=== PATIENT | female | born 1940 | race African-American/Black ===

== ENCOUNTER 2018-05-27 22:24 | Inpatient (IN) | payer MEDICARE, OTHER ==
[~2018-05-27] VITALS: Ht 149.9 cm; Wt 50.3 kg
[2018-05-27] MEDS ORDERED: METHYLPREDNISOLONE SOD SUCC 125 MG/2 ML VIAL IV STA (22:31)
[2018-05-27] MEDS ORDERED: SODIUM CHLORIDE 0.9% 1,000 ML IV ONE (22:31)
[2018-05-27] MEDS ORDERED: ONDANSETRON HCL 4MG/2ML INJ IV STA (22:31)
[2018-05-27] MEDS ORDERED: IPRATROPIUM BROMIDE (0.02%) 0.5MG/2.5ML NEB HHN STA (22:31)
[2018-05-27] MEDS ORDERED: ALBUTEROL (0.083%) 2.5MG/3ML NEB HHN SCH (23:00)
[2018-05-27 23:53] LABS: BASOPHILS % 0.2 % (0.0-2.0); EOSINOPHILS % 0.3 % (0.0-5.0); HEMATOCRIT. 38.6 % (36.0-48.0); HEMOGLOBIN. 12.5 g/dL (12.0-16.0); LYMPHOCYTES % 17.4 % (20.0-50.0); MEAN PLATELET VOLUME 7.7 fl (7.4-10.4); MONOCYTES % 7.4 % (2.0-8.0); NEUTROPHILS % 74.7 % (40.0-76.0); PLATELET 222 x1000/uL (130-400); RED CELL DISTRIBUTION WIDTH 15.6 % (11.6-14.6)
[2018-05-27 23:59] LABS: CHLORIDE 107 mEq/L (98-107)
[2018-05-28] VITALS (7 sets, daily range): BP systolic 93–126; BP diastolic 26–71
[2018-05-28 00:30] LABS: BG BASE EXCESS 1.2 mmol/L (-2.0-2.0); BG BILEVEL POS AIRWAY PRESSURE 15/5; BG CARBOXYHEMOGLOBIN 0.3 % (0.5-1.5); BG DEOXYHEMOGLOBIN 0.9 % (0.0-5.0); BG FRACTION INSPIRED OXYGEN 50; BG HCO3 ACT 26.6 mmol/L (22.0-26.0); BG METHEMOGLOBIN 0.5 % (0.0-1.5); BG OXYGEN SATURATION 99.1 % (92.0-98.5); BG OXYHEMOGLOBIN 98.3 % (94.0-97.0); BG PCO2 44.9 mmHg (35.0-45.0); BG PO2 181.1 mmHg (75.0-100.0); BG SAMPLE SITE RIGHT RADIAL; BG TOTAL HEMOGLOBIN 13.1 g/dL (12.0-18.0); BG VENT MODE MASK - BIPAP
[2018-05-28] MEDS ORDERED: METHYLPREDNISOLONE SOD SUCC 40 MG/ML VIAL IV NR (09:42)
[2018-05-28] MEDS: IPRATROPIUM/ALBUTEROL 0.5-3(2.5)MG/3ML NEB HHN PRN ×2 (11:10→11:30)
[2018-05-28] MEDS ORDERED: GUAIFENESIN 200MG/10ML SUGAR FREE UDC PO PRN (11:45)
[2018-05-28] MEDS ORDERED: NA PHOS,M-B/NA PHOS,DI-BA ENEMA 118ML PR PRN (11:45)
[2018-05-28] MEDS ORDERED: ACETAMINOPHEN 650MG SUPP PR PRN (11:45)
[2018-05-28] MEDS ORDERED: ONDANSETRON HCL 4MG/2ML INJ IV PRN (11:45)
[2018-05-28] MEDS ORDERED: DOCUSATE SODIUM 100MG CAPSULE PO PRN (11:45)
[2018-05-28] MEDS ORDERED: IPRATROPIUM/ALBUTEROL 0.5-3(2.5)MG/3ML NEB INH PRN (11:45)
[2018-05-28] MEDS ORDERED: ACETAMINOPHEN 325MG TABLET PO PRN (11:45)
[2018-05-28] MEDS ORDERED: CLONIDINE 0.1MG TABLET PO PRN (11:45)
[2018-05-28] MEDS ORDERED: DEXTROSE 50% WATER 50ML SYRINGE IV PRN (11:45)
[2018-05-28] MEDS ORDERED: DIPHENHYDRAMINE 50MG/ML VIAL IV PRN (11:45)
[2018-05-28] MEDS ORDERED: MAGNESIUM/ALUMINUM HYDROXIDE/SIMETHICONE 30ML UDC PO PRN (11:45)
[2018-05-28] MEDS: INSULIN LISPRO 100 UNITS/ML SUBCUT SCH ×3 (12:20→21:00)
[2018-05-28] MEDS: BLOOD SUGAR DIAGNOSTIC STRIP TEST SCH ×3 (12:33→21:23)
[2018-05-28] MEDS: ENOXAPARIN 40MG/0.4ML SYR SUBCUT SCH (12:33)
[2018-05-28] MEDS: IPRATROPIUM/ALBUTEROL 0.5-3(2.5)MG/3ML NEB INH SCH ×3 (12:43→22:00)
[2018-05-28 12:52] LABS: HEMATOCRIT 38.1 % (36.0-48.0); HEMOGLOBIN 12.3 g/dL (12.0-16.0); MEAN CORPUSCULAR HEMOGLOBIN 32.3 pg (28.0-32.0); PLATELET 200 x1000/uL (130-400); RED BLOOD CELL COUNT 3.81 mill/uL (4.2-5.4); RED CELL DISTRIBUTION WIDTH 15.7 % (11.6-14.6)
[2018-05-28 12:54] LABS: INR 1.1; PROTHROMBIN TIME 10.9 sec (9.1-11.1)
[2018-05-28 12:58] LABS: CHLORIDE 109 mEq/L (98-107)
[2018-05-28] MEDS ORDERED: LEVOFLOXACIN 500MG PREMIX 100 ML IV NR (13:30)
[2018-05-28] MEDS: NITROGLYCERIN OINT 1GM/INCH UDPKT TD SCH ×2 (17:00→21:43)
[2018-05-28] MEDS: METHYLPREDNISOLONE SOD SUCC 40 MG/ML VIAL IV SCH (18:06)
[2018-05-28] MEDS: FAMOTIDINE 20MG/2ML VIAL IV SCH (21:42)
[2018-05-28 22:16] LABS: CREATINE KINASE MB FRACTION 5.1 ng/mL (0.5-3.6)
[2018-05-28 23:42] LABS: CLARITY URINE CLEAR (CLEAR); COLOR URINE YELLOW (YELLOW); KETONES URINE TRACE (NEGATIVE); LEUKOCYTE ESTERASE URINE NEGATIVE (NEGATIVE); NITRITE URINE NEGATIVE (NEGATIVE); OCCULT BLOOD URINE 1+ (NEGATIVE); PROTEIN URINE NEGATIVE (NEGATIVE); SPECIFIC GRAVITY URINE 1.019 (1.005-1.030); UROBILINOGEN URINE 0.2 E.U./dL (0.2-1.0)
[2018-05-29] VITALS (17 sets, daily range): BP systolic 90–115; BP diastolic 45–77
[2018-05-29 00:11] LABS: *AMPHETAMINES SCREEN URINE NEGATIVE (NEGATIVE); *BARBITURATES SCREEN URINE NEGATIVE (NEGATIVE)
[2018-05-29 00:12] LABS: *BENZODIAZEPINES SCREEN URINE NEGATIVE (NEGATIVE); *COCAINE SCREEN URINE NEGATIVE (NEGATIVE); METHADONE URINE SCREEN NEGATIVE (NEGATIVE); OPIATES URINE SCREEN PRESUMTIVE POSITIVE (NEGATIVE)
[2018-05-29 00:13] LABS: CANNABINOID URINE SCREEN NEGATIVE (NEGATIVE); PHENCYCLIDINE URINE SCREEN NEGATIVE (NEGATIVE)
[2018-05-29] MEDS: IPRATROPIUM/ALBUTEROL 0.5-3(2.5)MG/3ML NEB INH SCH ×6 (01:09→20:54)
[2018-05-29] MEDS: METHYLPREDNISOLONE SOD SUCC 40 MG/ML VIAL IV SCH ×3 (03:09→18:55)
[2018-05-29] MEDS: LORAZEPAM 0.5MG TABLET PO PRN ×2 (05:41→21:45)
[2018-05-29] MEDS: NITROGLYCERIN OINT 1GM/INCH UDPKT TD SCH ×3 (06:12→21:45)
[2018-05-29 06:29] LABS: BASOPHILS % 0.1 % (0.0-2.0); HEMATOCRIT. 38.7 % (36.0-48.0); HEMOGLOBIN. 12.5 g/dL (12.0-16.0); MEAN CORPUSCULAR HEMOGLOBIN 31.8 pg (28.0-32.0); MEAN CORPUSCULAR VOLUME 98.6 fL (81.0-99.0); MEAN PLATELET VOLUME 7.8 fl (7.4-10.4); MONOCYTES % 5.4 % (2.0-8.0); NEUTROPHILS % 84.5 % (40.0-76.0); PLATELET 233 x1000/uL (130-400); RED BLOOD CELL COUNT 3.92 mill/uL (4.2-5.4); RED CELL DISTRIBUTION WIDTH 15.7 % (11.6-14.6)
[2018-05-29] MEDS: BLOOD SUGAR DIAGNOSTIC STRIP TEST SCH ×4 (06:37→21:44)
[2018-05-29 07:02] LABS: CHLORIDE 106 mEq/L (98-107)
[2018-05-29 07:27] LABS: HDL CHOLESTEROL 80 mg/dL (40-59); T4 FREE 0.99 ng/dL (0.76-1.46)
[2018-05-29 07:29] LABS: LDL CHOLESTEROL 148 mg/dL (5-100)
[2018-05-29 07:46] LABS: BG BASE EXCESS 2.9 mmol/L (-2.0-2.0); BG BILEVEL POS AIRWAY PRESSURE 15/5; BG CARBOXYHEMOGLOBIN 0.3 % (0.5-1.5); BG DEOXYHEMOGLOBIN 1.2 % (0.0-5.0); BG HCO3 ACT 28.7 mmol/L (22.0-26.0); BG METHEMOGLOBIN 0.4 % (0.0-1.5); BG OXYGEN SATURATION 98.8 % (92.0-98.5); BG OXYHEMOGLOBIN 98.1 % (94.0-97.0); BG PCO2 48.9 mmHg (35.0-45.0); BG PH 7.387 (7.350-7.450); BG PO2 145.3 mmHg (75.0-100.0); BG SAMPLE SITE RIGHT RADIAL; BG TOTAL HEMOGLOBIN 12.9 g/dL (12.0-18.0); BG VENT MODE MASK - BIPAP; BG VENT RATE 14 set
[2018-05-29] MEDS: FAMOTIDINE 20MG/2ML VIAL IV SCH (07:51)
[2018-05-29] MEDS: ASPIRIN 81MG EC TABLET PO SCH (07:52)
[2018-05-29] MEDS: INSULIN LISPRO 100 UNITS/ML SUBCUT SCH ×4 (07:53→21:00)
[2018-05-29] MEDS: LEVOFLOXACIN 250MG PREMIX 50 ML IV SCH (13:11)
[2018-05-29] MEDS: ENOXAPARIN 40MG/0.4ML SYR SUBCUT SCH (13:11)
[2018-05-29] MEDS: ATORVASTATIN CALCIUM 10MG TABLET PO SCH (21:45)
[2018-05-30] VITALS (13 sets, daily range): BP systolic 96–134; BP diastolic 47–86
[2018-05-30] MEDS: IPRATROPIUM/ALBUTEROL 0.5-3(2.5)MG/3ML NEB INH SCH ×6 (00:51→20:35)
[2018-05-30] MEDS: METHYLPREDNISOLONE SOD SUCC 40 MG/ML VIAL IV SCH ×3 (01:17→18:23)
[2018-05-30] MEDS: LORAZEPAM 0.5MG TABLET PO PRN (04:30)
[2018-05-30 06:08] LABS: HEMATOCRIT. 36.4 % (36.0-48.0); HEMOGLOBIN. 11.9 g/dL (12.0-16.0); MEAN CORPUSCULAR HEMOGLOBIN 32.1 pg (28.0-32.0); MEAN PLATELET VOLUME 7.9 fl (7.4-10.4); PLATELET 237 x1000/uL (130-400); RED BLOOD CELL COUNT 3.72 mill/uL (4.2-5.4); RED CELL DISTRIBUTION WIDTH 15.5 % (11.6-14.6)
[2018-05-30] MEDS: BLOOD SUGAR DIAGNOSTIC STRIP TEST SCH ×4 (06:41→21:05)
[2018-05-30] MEDS: NITROGLYCERIN OINT 1GM/INCH UDPKT TD SCH ×3 (06:45→21:14)
[2018-05-30 07:45] LABS: CHLORIDE 104 mEq/L (98-107)
[2018-05-30] MEDS: FAMOTIDINE 20MG/2ML VIAL IV SCH (08:27)
[2018-05-30] MEDS: ASPIRIN 81MG EC TABLET PO SCH (08:27)
[2018-05-30] MEDS: INSULIN LISPRO 100 UNITS/ML SUBCUT SCH ×4 (08:28→21:14)
[2018-05-30] MEDS: HYDROCODONE/ACETAMINOPHEN 5/325MG TABLET PO PRN ×2 (10:53→16:20)
[2018-05-30 10:58] LABS: NUCLEATED RED BLOOD CELLS 1 /100 WBC
[2018-05-30 10:59] LABS: PLATELET ESTIMATE NORMAL
[2018-05-30] MEDS: LEVOFLOXACIN 250MG PREMIX 50 ML IV SCH (12:34)
[2018-05-30] MEDS: ENOXAPARIN 40MG/0.4ML SYR SUBCUT SCH (12:34)
[2018-05-30] MEDS ORDERED: LORAZEPAM 0.5MG TABLET PO PRN (15:45)
[2018-05-30] MEDS: ATORVASTATIN CALCIUM 10MG TABLET PO SCH (21:14)
[2018-05-31] VITALS (10 sets, daily range): BP systolic 101–114; BP diastolic 39–76
[2018-05-31] MEDS: IPRATROPIUM/ALBUTEROL 0.5-3(2.5)MG/3ML NEB INH SCH ×3 (00:18→15:06)
[2018-05-31] MEDS: HYDROCODONE/ACETAMINOPHEN 5/325MG TABLET PO PRN (04:35)
[2018-05-31] MEDS: NITROGLYCERIN OINT 1GM/INCH UDPKT TD SCH ×2 (06:00→13:19)
[2018-05-31 06:30] LABS: BASOPHILS % 0.1 % (0.0-2.0); HEMATOCRIT. 35.4 % (36.0-48.0); HEMOGLOBIN. 11.4 g/dL (12.0-16.0); LYMPHOCYTES % 7.4 % (20.0-50.0); MEAN CORPUSCULAR HEMOGLOBIN 31.6 pg (28.0-32.0); MEAN CORPUSCULAR VOLUME 97.8 fL (81.0-99.0); NEUTROPHILS % 86.5 % (40.0-76.0); PLATELET 253 x1000/uL (130-400); RED BLOOD CELL COUNT 3.63 mill/uL (4.2-5.4); RED CELL DISTRIBUTION WIDTH 15.2 % (11.6-14.6)
[2018-05-31 06:35] LABS: CHLORIDE 102 mEq/L (98-107)
[2018-05-31] MEDS: METHYLPREDNISOLONE SOD SUCC 40 MG/ML VIAL IV SCH ×2 (06:39→18:16)
[2018-05-31] MEDS: BLOOD SUGAR DIAGNOSTIC STRIP TEST SCH ×3 (06:40→16:50)
[2018-05-31] MEDS: INSULIN LISPRO 100 UNITS/ML SUBCUT SCH ×3 (07:20→17:20)
[2018-05-31] MEDS: FAMOTIDINE 20MG/2ML VIAL IV SCH (09:10)
[2018-05-31] MEDS: ASPIRIN 81MG EC TABLET PO SCH (09:11)
[2018-05-31] MEDS: LEVOFLOXACIN 250MG PREMIX 50 ML IV SCH (12:40)
[2018-05-31] MEDS: ENOXAPARIN 40MG/0.4ML SYR SUBCUT SCH (12:41)
== END 2018-05-31 19:57 | disposition home health service (06) | DRG 280 ==
LOC: ER 22:24 → 3WST 05-28 01:00 → EDBEDREQDT 05-28 01:07 → EDBEDREQSVC 05-28 01:07 → EDBEDREQ 05-28 01:07 → EDBEDREQTM 05-28 01:07 → ENRESERV 05-28 10:57 → 3WST 05-28 11:44
PROVIDERS: ADMIT Internal Medicine; ATTEND Internal Medicine
PROC: 5A09357 Assistance with Respiratory Ventilation, Less than 24 Consecutive Hours, Continuous Positive Airway Pressure (ICD-10-PCS; principal; 2018-05-27)
PROC: 5A09357 Assistance with Respiratory Ventilation, Less than 24 Consecutive Hours, Continuous Positive Airway Pressure (ICD-10-PCS; 2018-05-28)
DX: I21.4 Non-ST elevation (NSTEMI) myocardial infarction (principal); J96.01 Acute respiratory failure with hypoxia; I50.43 Acute on chronic combined systolic (congestive) and diastolic (congestive) heart failure; J18.9 Pneumonia, unspecified organism; J44.1 Chronic obstructive pulmonary disease with (acute) exacerbation; E78.5 Hyperlipidemia, unspecified; E11.65 Type 2 diabetes mellitus with hyperglycemia; F17.210 Nicotine dependence, cigarettes, uncomplicated; J06.9 Acute upper respiratory infection, unspecified; I11.0 Hypertensive heart disease with heart failure; I27.20 Pulmonary hypertension, unspecified; Z95.0 Presence of cardiac pacemaker; Z99.81 Dependence on supplemental oxygen
CPT/HCPCS: 36415; 36600; 71045; 80048; 80061; 80305; 82375; 82550; 82553; 82805; 82962; 83036; 83605; 83880; 84439; 84443; 84484; 85027; 93005; 93306; 93970; 94640; 94660; 96374; 96375; 97162; 99291; J1650; J1815; J1956; J2405; J2920; J2930; J3490; J7030; J7611; J7620

== ENCOUNTER 2018-11-01 17:49 | Emergency (ER) | payer MEDICARE, OTHER ==
[~2018-11-01] VITALS: Ht 157.5 cm; Wt 60.0 kg
[2018-11-01 19:06] LABS: BASOPHILS % 0.6 % (0.0-2.0); EOSINOPHILS % 0.2 % (0.0-5.0); HEMATOCRIT. 37.9 % (36.0-48.0); HEMOGLOBIN. 12.6 g/dL (12.0-16.0); LYMPHOCYTES % 19.4 % (20.0-50.0); MEAN CORPUSCULAR HEMOGLOBIN 31.6 pg (28.0-32.0); MEAN CORPUSCULAR VOLUME 95.5 fL (81.0-99.0); MEAN PLATELET VOLUME 7.6 fl (7.4-10.4); MONOCYTES % 8.5 % (2.0-8.0); NEUTROPHILS % 71.3 % (40.0-76.0); PLATELET 237 x1000/uL (130-400); RED BLOOD CELL COUNT 3.98 mill/uL (4.2-5.4); RED CELL DISTRIBUTION WIDTH 14.6 % (11.6-14.6)
[2018-11-01 19:11] LABS: CHLORIDE 104 mEq/L (98-107)
[2018-11-01] MEDS ORDERED: KETOROLAC 15MG/ML VIAL IV NR (19:30)
[2018-11-01] MEDS ORDERED: ASPIRIN 325MG TABLET PO NR (19:30)
[2018-11-01 23:49] VITALS: BP 138/115
== END 2018-11-02 ==
LOC: ER 17:49 → CANBEDREQ 11-02 01:06
DX: R07.89 Other chest pain (principal); R06.02 Shortness of breath; R10.13 Epigastric pain; J44.9 Chronic obstructive pulmonary disease, unspecified; Z95.0 Presence of cardiac pacemaker
CPT/HCPCS: 36415; 71045; 80053; 83880; 84484; 85025; 93005; 96374; 99284; J1885

== ENCOUNTER 2019-05-02 03:37 | Inpatient (IN) | payer OTHER ==
[~2019-05-02] VITALS: Ht 149.9 cm; Wt 54.0 kg
[2019-05-02] MEDS ORDERED: MORPHINE SULFATE 4 MG/ML CPJ (NOT FOR IM USE) IV STA (04:13)
[2019-05-02] MEDS ORDERED: ONDANSETRON HCL 4MG/2ML INJ IV STA (04:13)
[2019-05-02] MEDS ORDERED: METRONIDAZOLE 500 MG PREMIX 100 ML IV ONE (04:15)
[2019-05-02] MEDS ORDERED: SODIUM CHLORIDE 0.9% 1000ML BAG (SEPSIS BOLUS) IV ONE (04:15)
[2019-05-02] MEDS ORDERED: CEFTRIAXONE 1 G PREMIX 50 ML IV ONE (04:15)
[2019-05-02 04:52] LABS: CHLORIDE 107 mEq/L (98-107)
[2019-05-02 04:55] LABS: BASOPHILS % 0.3 % (0.0-2.0); EOSINOPHILS % 0.3 % (0.0-5.0); HEMATOCRIT. 41.1 % (36.0-48.0); HEMOGLOBIN. 13.2 g/dL (12.0-16.0); LYMPHOCYTES % 12.4 % (20.0-50.0); MEAN CORPUSCULAR HEMOGLOBIN 30.8 pg (28.0-32.0); MEAN CORPUSCULAR VOLUME 95.8 fL (81.0-99.0); MEAN PLATELET VOLUME 8.2 fl (7.4-10.4); MONOCYTES % 2.9 % (2.0-8.0); NEUTROPHILS % 84.1 % (40.0-76.0); PLATELET 162 x1000/uL (130-400); RED BLOOD CELL COUNT 4.29 mill/uL (4.2-5.4)
[2019-05-02] MEDS ORDERED: LORAZEPAM 1MG TABLET PO ONE (06:15)
[2019-05-02] MEDS ORDERED: ALBUTEROL (0.083%) 2.5MG/3ML NEB HHN STA (06:21)
[2019-05-02] MEDS ORDERED: IPRATROPIUM BROMIDE (0.02%) 0.5MG/2.5ML NEB HHN STA (06:21)
[2019-05-02 07:54] LABS: CLARITY URINE CLEAR (CLEAR); COLOR URINE YELLOW (YELLOW); KETONES URINE NEGATIVE (NEGATIVE); LEUKOCYTE ESTERASE URINE NEGATIVE (NEGATIVE); NITRITE URINE NEGATIVE (NEGATIVE); OCCULT BLOOD URINE TRACE (NEGATIVE); PROTEIN URINE NEGATIVE (NEGATIVE); SPECIFIC GRAVITY URINE 1.008 (1.005-1.030); UROBILINOGEN URINE 0.2 E.U./dL (0.2-1.0)
[2019-05-02] MEDS: IPRATROPIUM/ALBUTEROL 0.5-3(2.5)MG/3ML NEB HHN SCH ×3 (08:36→15:55)
[2019-05-02] MEDS ORDERED: MORPHINE SULFATE 2 MG/ML CPJ (NOT FOR IM USE) IV PRN (10:45)
[2019-05-02] MEDS ORDERED: IPRATROPIUM/ALBUTEROL 0.5-3(2.5)MG/3ML NEB NEB PRN (10:45)
[2019-05-02] MEDS ORDERED: DEXT 5%/0.45% NACL KCL 10MEQ/L 1,000 ML IV SCH ×2 (10:45→11:30)
[2019-05-02] MEDS ORDERED: ONDANSETRON HCL 4MG/2ML INJ IV PRN (10:45)
[2019-05-02] MEDS ORDERED: DIPHENHYDRAMINE 50MG/ML VIAL IV PRN (10:45)
[2019-05-02] MEDS ORDERED: POTASSIUM CHLORIDE INJ 40 MEQ in DEXT 5% WATER 250 ML IV SCH (11:00)
[2019-05-02] MEDS ORDERED: PIPERACILLIN/TAZOBACTAM 2.25 G in DEXTROSE 5% WATER 50 ML IV SCH ×2 (11:00→18:00)
[2019-05-02] MEDS: FAMOTIDINE 20MG/2ML VIAL IV SCH (11:31)
[2019-05-02 11:57] LABS: *BARBITURATES SCREEN URINE NEGATIVE (NEGATIVE)
[2019-05-02 11:58] LABS: CANNABINOID URINE SCREEN NEGATIVE (NEGATIVE); METHADONE URINE SCREEN NEGATIVE (NEGATIVE); OPIATES URINE SCREEN PRESUMTIVE POSITIVE (NEGATIVE); PHENCYCLIDINE URINE SCREEN NEGATIVE (NEGATIVE)
[2019-05-02 11:59] LABS: *AMPHETAMINES SCREEN URINE NEGATIVE (NEGATIVE); *COCAINE SCREEN URINE NEGATIVE (NEGATIVE)
[2019-05-02 12:01] LABS: *BENZODIAZEPINES SCREEN URINE NEGATIVE (NEGATIVE)
[2019-05-02] MEDS: METHYLPREDNISOLONE SOD SUCC 40 MG/ML VIAL IV SCH (13:15)
[2019-05-02] MEDS: LORAZEPAM 2MG/ML CPJ IV PRN (15:03)
[2019-05-02] MEDS: DEXT 5%/0.45% NACL 1000ML 1,000 ML IV SCH (16:36)
[2019-05-02] MEDS ORDERED: IPRATROPIUM/ALBUTEROL 0.5-3(2.5)MG/3ML NEB HHN SCH (18:00)
[2019-05-02 23:00] VITALS: BP 102/59
[2019-05-02 23:37] VITALS: BP 102/59
[2019-05-03] VITALS (9 sets, daily range): BP systolic 94–136; BP diastolic 51–111
[2019-05-03] MEDS: PIPERACILLIN/TAZOBACTAM 3.375 G in DEXT 5% WATER 100 ML IV SCH ×4 (01:47→18:00)
[2019-05-03] MEDS: DEXT 5%/0.45% NACL 1000ML 1,000 ML IV SCH ×3 (01:47→21:15)
[2019-05-03] MEDS: IPRATROPIUM/ALBUTEROL 0.5-3(2.5)MG/3ML NEB HHN SCH ×4 (02:32→22:07)
[2019-05-03 07:19] LABS: HEMATOCRIT. 33.3 % (36.0-48.0); MEAN CORPUSCULAR HEMOGLOBIN 31.8 pg (28.0-32.0); MEAN CORPUSCULAR VOLUME 96.4 fL (81.0-99.0); MEAN PLATELET VOLUME 8.2 fl (7.4-10.4); PLATELET 159 x1000/uL (130-400); RED BLOOD CELL COUNT 3.45 mill/uL (4.2-5.4)
[2019-05-03 07:20] LABS: CHLORIDE 110 mEq/L (98-107)
[2019-05-03 07:33] LABS: T4 FREE 1.11 ng/dL (0.76-1.46)
[2019-05-03 07:34] LABS: HDL CHOLESTEROL 71 mg/dL (40-59)
[2019-05-03 07:35] LABS: LDL CHOLESTEROL 51 mg/dL (5-100)
[2019-05-03] MEDS: FAMOTIDINE 20MG/2ML VIAL IV SCH (08:40)
[2019-05-03] MEDS: METHYLPREDNISOLONE SOD SUCC 40 MG/ML VIAL IV SCH (08:40)
[2019-05-03 14:08] LABS: PLATELET ESTIMATE NORMAL
[2019-05-03 18:32] LABS: PROTHROMBIN TIME 11.2 sec (9.6-11.0)
[2019-05-03] MEDS: LORAZEPAM 2MG/ML CPJ IV PRN (22:56)
[2019-05-04] MEDS: PIPERACILLIN/TAZOBACTAM 3.375 G in DEXT 5% WATER 100 ML IV SCH ×4 (00:27→17:19)
[2019-05-04 02:00] VITALS: BP 125/99
[2019-05-04] MEDS: IPRATROPIUM/ALBUTEROL 0.5-3(2.5)MG/3ML NEB HHN SCH ×4 (03:17→21:01)
[2019-05-04 04:00] VITALS: BP 122/73
[2019-05-04] MEDS: DEXT 5%/0.45% NACL 1000ML 1,000 ML IV SCH ×2 (06:54→14:52)
[2019-05-04 07:57] LABS: HEMATOCRIT 33.6 % (36.0-48.0); HEMOGLOBIN 11.2 g/dL (12.0-16.0); MEAN CORPUSCULAR VOLUME 95.7 fL (81.0-99.0); RED BLOOD CELL COUNT 3.51 mill/uL (4.2-5.4)
[2019-05-04] MEDS: FAMOTIDINE 20MG/2ML VIAL IV SCH (08:37)
[2019-05-04] MEDS: METHYLPREDNISOLONE SOD SUCC 40 MG/ML VIAL IV SCH (08:37)
[2019-05-04 09:12] LABS: CHLORIDE 109 mEq/L (98-107)
[2019-05-04 10:37] LABS: PLATELET 186 x1000/uL (130-400)
[2019-05-04 12:00] VITALS: BP 132/83
[2019-05-04] MEDS: LORAZEPAM 2MG/ML CPJ IV PRN (12:26)
[2019-05-04 14:00] VITALS: BP 112/85
[2019-05-04] MEDS ORDERED: POTASSIUM CHLORIDE 20MEQ/PACKET PO NR (14:30)
[2019-05-04 16:00] VITALS: BP 115/69
[2019-05-04] MEDS: DOCUSATE SODIUM 100MG CAPSULE PO SCH (17:19)
[2019-05-04 19:30] LABS: PHOSPHORUS 1.8 mg/dL (2.5-4.9)
[2019-05-04 20:00] VITALS: BP 95/53
[2019-05-05] VITALS (7 sets, daily range): BP systolic 88–145; BP diastolic 42–76
[2019-05-05] MEDS: PIPERACILLIN/TAZOBACTAM 3.375 G in DEXT 5% WATER 100 ML IV SCH ×3 (02:20→13:01)
[2019-05-05] MEDS: DEXT 5%/0.45% NACL 1000ML 1,000 ML IV SCH (02:22)
[2019-05-05] MEDS: IPRATROPIUM/ALBUTEROL 0.5-3(2.5)MG/3ML NEB HHN SCH ×3 (03:17→16:13)
[2019-05-05 07:27] LABS: HEMATOCRIT 31.5 % (36.0-48.0); HEMOGLOBIN 10.3 g/dL (12.0-16.0); MEAN CORPUSCULAR HEMOGLOBIN 31.1 pg (28.0-32.0); MEAN CORPUSCULAR VOLUME 95.2 fL (81.0-99.0); PLATELET 179 x1000/uL (130-400); RED BLOOD CELL COUNT 3.31 mill/uL (4.2-5.4)
[2019-05-05 07:58] LABS: CHLORIDE 110 mEq/L (98-107)
[2019-05-05 08:04] LABS: PHOSPHORUS 2.4 mg/dL (2.5-4.9)
[2019-05-05] MEDS: DOCUSATE SODIUM 100MG CAPSULE PO SCH ×2 (08:40→16:34)
[2019-05-05] MEDS: FAMOTIDINE 20MG/2ML VIAL IV SCH (08:40)
[2019-05-05] MEDS: METHYLPREDNISOLONE SOD SUCC 40 MG/ML VIAL IV SCH (08:40)
[2019-05-05] MEDS ORDERED: CRES10 PO (12:12)
[2019-05-05] MEDS ORDERED: PRED-276 PO (12:12)
[2019-05-05] MEDS ORDERED: DIPH50CA38 PO (12:12)
[2019-05-05] MEDS ORDERED: FLUT1AER INH (12:12)
[2019-05-05] MEDS ORDERED: MONT10TA21 PO (12:12)
[2019-05-05] MEDS ORDERED: LORA2DIS5 SQ (12:12)
[2019-05-05] MEDS ORDERED: TLXL5 PO (12:12)
[2019-05-06] MEDS ORDERED: LORA-249 PO (22:44)
== END 2019-05-05 18:22 | disposition home or self-care (01) | DRG 244 ==
LOC: ER 03:37 → 5EST 05:07 → EDBEDREQTM 05:10 → EDBEDREQ 05:10 → ENRESERV 21:41 → 5EST 05-04 10:20
PROVIDERS: ADMIT Internal Medicine; ATTEND Internal Medicine
DX: K57.80 Diverticulitis of intestine, part unspecified, with perforation and abscess without bleeding (principal); I50.43 Acute on chronic combined systolic (congestive) and diastolic (congestive) heart failure; I27.20 Pulmonary hypertension, unspecified; J44.1 Chronic obstructive pulmonary disease with (acute) exacerbation; K76.89 Other specified diseases of liver; E87.6 Hypokalemia; I11.0 Hypertensive heart disease with heart failure; Z95.0 Presence of cardiac pacemaker
CPT/HCPCS: 36415; 71045; 74176; 80048; 80051; 80053; 80061; 80305; 81003; 83605; 83735; 84100; 84145; 84439; 84443; 84484; 85025; 85027; 93005; 93306; 93970; 94640; 96365; 99291; J0696; J2060; J2270; J2405; J2543; J2920; J3480; J3490; J7030; J7060

== ENCOUNTER 2019-05-06 10:28 | Inpatient (IN) | payer OTHER ==
[~2019-05-06] VITALS: Ht 149.9 cm; Wt 47.6 kg
[~2019-05-06 10:28] MED LIST: CRES10 PO; DIPH50CA38 PO; FLUT1AER INH; LORA2DIS5 SQ; MONT10TA21 PO; PRED-276 PO; TLXL5 PO
[2019-05-06 11:32] LABS: HEMATOCRIT. 38.9 % (36.0-48.0); HEMOGLOBIN. 12.9 g/dL (12.0-16.0); MEAN CORPUSCULAR HEMOGLOBIN 31.4 pg (28.0-32.0); MEAN CORPUSCULAR VOLUME 95.1 fL (81.0-99.0); PLATELET 235 x1000/uL (130-400); RED CELL DISTRIBUTION WIDTH 15.2 % (11.6-14.6)
[2019-05-06 11:34] LABS: CHLORIDE 103 mEq/L (98-107)
[2019-05-06 12:08] LABS: PLATELET ESTIMATE NORMAL
[2019-05-06] MEDS ORDERED: ALBUTEROL (0.083%) 2.5MG/3ML NEB HHN STA (12:56)
[2019-05-06] MEDS ORDERED: METHYLPREDNISOLONE SOD SUCC 125 MG/2 ML VIAL IV STA (12:56)
[2019-05-06] MEDS ORDERED: IPRATROPIUM BROMIDE (0.02%) 0.5MG/2.5ML NEB HHN STA (12:56)
[2019-05-06] MEDS ORDERED: ATORVASTATIN CALCIUM 20MG TABLET PO SCH (21:00)
[2019-05-06 21:45] VITALS: BP 142/65
[2019-05-06] MEDS ORDERED: LORA-249 PO (22:44)
[2019-05-06] MEDS ORDERED: ACETAMINOPHEN 325MG TABLET PO PRN (23:00)
[2019-05-06] MEDS ORDERED: DIPHENHYDRAMINE 25MG CAPSULE PO PRN (23:00)
[2019-05-06] MEDS ORDERED: LORAZEPAM 0.5MG TABLET PO PRN (23:00)
[2019-05-06] MEDS: AMOXICILLIN/POTASSIUM CLAVULANATE 875/125MG TAB PO SCH (23:51)
[2019-05-07] VITALS: BP 136/68
[2019-05-07 04:00] VITALS: BP 105/66
[2019-05-07] MEDS ORDERED: PANTOPRAZOLE 40MG DR TABLET PO SCH (07:40)
[2019-05-07 08:00] VITALS: BP 101/55
[2019-05-07] MEDS: AMOXICILLIN/POTASSIUM CLAVULANATE 875/125MG TAB PO SCH (08:02)
[2019-05-07 08:18] LABS: CHLORIDE 105 mEq/L (98-107)
[2019-05-07 08:31] LABS: BASOPHILS % 0.1 % (0.0-2.0); HEMATOCRIT. 34.4 % (36.0-48.0); HEMOGLOBIN. 11.6 g/dL (12.0-16.0); MEAN CORPUSCULAR HEMOGLOBIN 31.7 pg (28.0-32.0); MEAN PLATELET VOLUME 8.1 fl (7.4-10.4); MONOCYTES % 6.5 % (2.0-8.0); NEUTROPHILS % 85.4 % (40.0-76.0); PLATELET 243 x1000/uL (130-400); RED BLOOD CELL COUNT 3.66 mill/uL (4.2-5.4); RED CELL DISTRIBUTION WIDTH 15.3 % (11.6-14.6)
[2019-05-07] MEDS ORDERED: MEDICATION NOT ON FORMULARY EA (Rosuvastatin Calcium (Crestor) 1 TAB) PO SCH (09:00)
[2019-05-07] MEDS ORDERED: MONTELUKAST SODIUM 10MG TABLET PO SCH (09:00)
[2019-05-07] MEDS ORDERED: METHYLPREDNISOLONE SOD SUCC 40 MG/ML VIAL IV SCH (09:00)
[2019-05-07] MEDS: IPRATROPIUM/ALBUTEROL 0.5-3(2.5)MG/3ML NEB HHN SCH ×3 (10:30→15:55)
[2019-05-07 12:00] VITALS: BP 110/56
[2019-05-07] MEDS ORDERED: P20 PO (15:37)
[2019-05-07 15:40] VITALS: BP 110/58
[2019-05-07 16:00] VITALS: BP 110/58
== END 2019-05-07 17:52 | disposition home or self-care (01) | DRG 190 ==
LOC: ER 10:28 → 7WST 13:54 → EDBEDREQ 19:51 → ENRESERV 21:10
PROVIDERS: ADMIT Internal Medicine; ATTEND Internal Medicine
DX: J44.1 Chronic obstructive pulmonary disease with (acute) exacerbation (principal); I50.43 Acute on chronic combined systolic (congestive) and diastolic (congestive) heart failure; I11.0 Hypertensive heart disease with heart failure; D72.829 Elevated white blood cell count, unspecified; K57.90 Diverticulosis of intestine, part unspecified, without perforation or abscess without bleeding; I27.20 Pulmonary hypertension, unspecified; I48.91 Unspecified atrial fibrillation; Z95.0 Presence of cardiac pacemaker; Z79.899 Other long term (current) drug therapy
CPT/HCPCS: 36415; 71045; 80048; 80053; 83880; 84484; 85025; 93005; 94640; 99285; J2920; J2930; Q0163

== ENCOUNTER 2019-05-18 12:51 | Inpatient (IN) | payer OTHER ==
[~2019-05-18] VITALS: Ht 154.9 cm; Wt 47.6 kg
[~2019-05-18 12:51] MED LIST changes: +LORA-249 PO; -LORA2DIS5 SQ; +P20 PO; -PRED-276 PO; -TLXL5 PO
[2019-05-18 15:17] LABS: HEMATOCRIT. 40.6 % (36.0-48.0); HEMOGLOBIN. 13.3 g/dL (12.0-16.0); MEAN CORPUSCULAR HEMOGLOBIN 31.1 pg (28.0-32.0); MEAN CORPUSCULAR VOLUME 95.5 fL (81.0-99.0); MEAN PLATELET VOLUME 9.2 fl (7.4-10.4); PLATELET 230 x1000/uL (130-400); RED BLOOD CELL COUNT 4.26 mill/uL (4.2-5.4); RED CELL DISTRIBUTION WIDTH 15.1 % (11.6-14.6)
[2019-05-18 15:23] LABS: CHLORIDE 101 mEq/L (98-107); PROTHROMBIN TIME 10.6 sec (9.6-11.0)
[2019-05-18] MEDS ORDERED: METRONIDAZOLE 500 MG PREMIX 100 ML IV ONE (16:00)
[2019-05-18] MEDS ORDERED: CEFTRIAXONE 1 G PREMIX 50 ML IV ONE (16:00)
[2019-05-18 16:13] LABS: PLATELET ESTIMATE NORMAL
[2019-05-19 03:43] LABS: CLARITY URINE CLOUDY (CLEAR); COLOR URINE DARK YELLOW (YELLOW); KETONES URINE TRACE (NEGATIVE); LEUKOCYTE ESTERASE URINE TRACE (NEGATIVE); NITRITE URINE NEGATIVE (NEGATIVE); OCCULT BLOOD URINE 2+ (NEGATIVE); PROTEIN URINE 2+ (NEGATIVE); SPECIFIC GRAVITY URINE 1.034 (1.005-1.030)
[2019-05-19] MEDS ORDERED: DEXT 5%/0.45% NACL 1000ML 1,000 ML IV SCH (05:00)
[2019-05-19] MEDS ORDERED: PIPERACILLIN/TAZ 3.375G PREMIX 50 ML IV SCH (05:00)
[2019-05-19] MEDS ORDERED: IPRATROPIUM/ALBUTEROL 0.5-3(2.5)MG/3ML NEB HHN PRN (05:00)
[2019-05-19] MEDS ORDERED: IPRATROPIUM/ALBUTEROL 0.5-3(2.5)MG/3ML NEB HHN SCH (08:00)
[2019-05-19 08:30] VITALS: BP 104/72
[2019-05-19] MEDS ORDERED: DOCU-150 PO (11:28)
[2019-05-19] MEDS ORDERED: PRED10TA23 PO (11:28)
[2019-05-19] MEDS ORDERED: ASPI500T65 PO (11:28)
[2019-05-19] MEDS ORDERED: TOPUD PO (11:28)
[2019-05-19] MEDS ORDERED: DIPH50CA38 PO (11:28)
[2019-05-19] MEDS ORDERED: ZOLP5TAB2 PO (11:28)
[2019-05-19 12:00] VITALS: BP 104/72
[2019-05-19] MEDS ORDERED: PIPERACILLIN/TAZOBACTAM 3.375 G in DEXT 5% WATER 100 ML IV SCH ×2 (12:00→15:00)
[2019-05-19] MEDS ORDERED: GUAIFENESIN 200MG/10ML SUGAR FREE UDC PO PRN (12:15)
[2019-05-19] MEDS ORDERED: DIPHENHYDRAMINE 50MG/ML VIAL IV PRN (12:15)
[2019-05-19] MEDS ORDERED: ACETAMINOPHEN 650MG SUPP PR PRN (12:15)
[2019-05-19] MEDS ORDERED: ACETAMINOPHEN 325MG TABLET PO PRN (12:15)
[2019-05-19] MEDS ORDERED: ONDANSETRON HCL 4MG/2ML INJ IV PRN (12:15)
[2019-05-19] MEDS ORDERED: CLONIDINE 0.1MG TABLET PO PRN (12:15)
[2019-05-19] MEDS ORDERED: MORPHINE SULFATE 2 MG/ML CPJ (NOT FOR IM USE) IV PRN (12:15)
[2019-05-19] MEDS ORDERED: METHYLPREDNISOLONE SOD SUCC 40 MG/ML VIAL IV SCH (12:45)
[2019-05-19] MEDS ORDERED: BISACODYL 10MG SUPP PR PRN (15:30)
[2019-05-19] MEDS ORDERED: DOCUSATE SODIUM 250MG CAPSULE PO NR (15:30)
[2019-05-19] MEDS ORDERED: NA PHOS,M-B/NA PHOS,DI-BA ENEMA 118ML PR NR (15:30)
[2019-05-19 16:13] LABS: HEMATOCRIT. 38.6 % (36.0-48.0); HEMOGLOBIN. 12.7 g/dL (12.0-16.0); MEAN CORPUSCULAR HEMOGLOBIN 30.9 pg (28.0-32.0); MEAN CORPUSCULAR VOLUME 93.8 fL (81.0-99.0); MEAN PLATELET VOLUME 8.5 fl (7.4-10.4); PLATELET 234 x1000/uL (130-400); RED BLOOD CELL COUNT 4.12 mill/uL (4.2-5.4); RED CELL DISTRIBUTION WIDTH 15.2 % (11.6-14.6)
[2019-05-19 16:24] LABS: CHLORIDE 102 mEq/L (98-107)
[2019-05-19 16:43] LABS: PLATELET ESTIMATE NORMAL
[2019-05-20] MEDS ORDERED: DOCUSATE SODIUM SUGAR FREE 100MG/10ML UDC NG SCH (09:00)
== END 2019-05-19 17:37 | disposition short-term general hospital (02) | DRG 757 ==
LOC: ER 12:51 → 6EST 19:00 → EDBEDREQTM 19:40 → ENRESERV 05-19 07:43 → 6EST 05-19 08:32
PROVIDERS: ADMIT Internal Medicine; ATTEND Internal Medicine
DX: N73.9 Female pelvic inflammatory disease, unspecified (principal); I50.43 Acute on chronic combined systolic (congestive) and diastolic (congestive) heart failure; N39.0 Urinary tract infection, site not specified; E87.2 Acidosis; J44.1 Chronic obstructive pulmonary disease with (acute) exacerbation; L02.211 Cutaneous abscess of abdominal wall; K52.9 Noninfective gastroenteritis and colitis, unspecified; I11.0 Hypertensive heart disease with heart failure; I27.20 Pulmonary hypertension, unspecified; K59.00 Constipation, unspecified; K57.90 Diverticulosis of intestine, part unspecified, without perforation or abscess without bleeding; R26.89 Other abnormalities of gait and mobility; R73.9 Hyperglycemia, unspecified; Z79.899 Other long term (current) drug therapy; Z79.82 Long term (current) use of aspirin; Z99.81 Dependence on supplemental oxygen; Z95.0 Presence of cardiac pacemaker
CPT/HCPCS: 36415; 71045; 74176; 80048; 80053; 81003; 83880; 84484; 85025; 93005; 99285; J0696; J2543; J2920; J3490; J7060

== ENCOUNTER 2019-08-07 16:20 | Emergency (ER) | payer MEDICARE, OTHER ==
[~2019-08-07] VITALS: Ht 165.1 cm; Wt 57.0 kg
[~2019-08-07 16:20] MED LIST changes: +ASPI500T65 PO; +DOCU-150 PO; +PRED10TA23 PO; +TOPUD PO; +ZOLP5TAB2 PO
[2019-08-07] MEDS ORDERED: ACETAMINOPHEN 325MG TABLET PO PRN (17:45)
[2019-08-07] MEDS ORDERED: DOCUSATE SODIUM 100MG CAPSULE PO PRN (17:45)
[2019-08-07] MEDS ORDERED: DIPHENHYDRAMINE 50MG/ML VIAL IV PRN (17:45)
[2019-08-07] MEDS ORDERED: CLONIDINE 0.1MG TABLET PO PRN (17:45)
[2019-08-07] MEDS ORDERED: ACETAMINOPHEN 650MG SUPP PR PRN (17:45)
[2019-08-07] MEDS ORDERED: MAGNESIUM/ALUMINUM HYDROXIDE/SIMETHICONE 30ML UDC PO PRN (17:45)
[2019-08-07] MEDS ORDERED: GUAIFENESIN 200MG/10ML SUGAR FREE UDC PO PRN (17:45)
[2019-08-07] MEDS ORDERED: ONDANSETRON HCL 4MG/2ML INJ IV PRN (17:45)
[2019-08-07] MEDS ORDERED: IPRATROPIUM/ALBUTEROL 0.5-3(2.5)MG/3ML NEB NEB PRN (17:45)
[2019-08-07] MEDS ORDERED: LORAZEPAM 0.5MG TABLET PO PRN (17:45)
[2019-08-07 17:54] LABS: HEMATOCRIT. 39.3 % (36.0-48.0); HEMOGLOBIN. 12.8 g/dL (12.0-16.0); MEAN CORPUSCULAR VOLUME 94.8 fL (81.0-99.0); MEAN PLATELET VOLUME 7.9 fl (7.4-10.4); PLATELET 285 x1000/uL (130-400); RED BLOOD CELL COUNT 4.15 mill/uL (4.2-5.4); RED CELL DISTRIBUTION WIDTH 16.7 % (11.6-14.6)
[2019-08-07 18:00] LABS: CHLORIDE 103 mEq/L (98-107)
[2019-08-07 18:06] LABS: D-DIMER 2.22 mg/L FEU (<0.50); INR 1.1; PROTHROMBIN TIME 11.9 sec (9.6-11.0)
[2019-08-07 18:12] LABS: PLATELET ESTIMATE NORMAL
[2019-08-07] MEDS ORDERED: METHYLPREDNISOLONE SOD SUCC 40 MG/ML VIAL IV SCH (18:13)
[2019-08-07] MEDS ORDERED: IPRATROPIUM/ALBUTEROL 0.5-3(2.5)MG/3ML NEB NEB SCH (18:14)
[2019-08-07] MEDS ORDERED: LEVOFLOXACIN 750MG PREMIX 150 ML IV NR (18:16)
[2019-08-07 18:38] LABS: BG BASE EXCESS 8.3 mmol/L (-2.0-2.0); BG CARBOXYHEMOGLOBIN 0.3 % (0.5-1.5); BG DEOXYHEMOGLOBIN 1.4 % (0.0-5.0); BG FRACTION INSPIRED OXYGEN 28; BG HCO3 ACT 33.5 mmol/L (22.0-26.0); BG METHEMOGLOBIN 0.3 % (0.0-1.5); BG OXYGEN SATURATION 98.6 % (92.0-98.5); BG PCO2 49.3 mmHg (35.0-45.0); BG PO2 135.9 mmHg (75.0-100.0); BG SAMPLE SITE RIGHT RADIAL; BG TOTAL HEMOGLOBIN 11.4 g/dL (12.0-18.0); BG VENT MODE NASAL CANNULA
[2019-08-07 19:14] VITALS: BP 135/77
[2019-08-07] MEDS ORDERED: ASPIRIN 300MG SUPP PR ONE (19:45)
[2019-08-07] MEDS ORDERED: HYDROCODONE/ACETAMINOPHEN 5/325MG TABLET PO PRN (20:05)
[2019-08-07] MEDS ORDERED: NA PHOS,M-B/NA PHOS,DI-BA ENEMA 118ML PR PRN (21:00)
[2019-08-08] MEDS ORDERED: LEVOFLOXACIN 500MG PREMIX 100 ML IV SCH (17:45)
== END 2019-08-07 21:36 | disposition short-term general hospital (02) ==
LOC: ER 16:20 → EDBEDREQ 18:44 → EDBEDREQTM 18:44 → EDBEDREQ 19:10 → ENRESERV 20:45 → CANRESERV 20:45 → CANBEDREQ 20:48 → ER 21:36
DX: J44.9 Chronic obstructive pulmonary disease, unspecified (principal); Z03.818 Encounter for observation for suspected exposure to other biological agents ruled out; F03.90 Unspecified dementia, unspecified severity, without behavioral disturbance, psychotic disturbance, mood disturbance, and anxiety; Z87.19 Personal history of other diseases of the digestive system; Z95.0 Presence of cardiac pacemaker; Z79.82 Long term (current) use of aspirin
CPT/HCPCS: 36415; 36600; 71045; 80053; 82375; 82805; 83605; 83880; 84145; 84484; 85025; 85379; 85610; 87040; 93005; 96365; 96375; 99291; J1956; J2920; U0003